=== PATIENT | male | born 1960 | race Caucasian/White ===

== ENCOUNTER 2017-03-19 11:12 | Emergency (ER) | payer OTHER ==
--- NOTE | 2017-03-19 12:25 | ED ORDER SUMMARY ---
..... Patient: BLAIR LAY OrderSheet [facility] VisitID: [id number] [place] [address] 57y, M Registration Date/Time: 03/19/2017 ORDER SHEET Weight: 99.7 kg (stated) Allergies: Tegretol GENERAL ORDERS: Foot 3V Right Urgent (12:06 03/19/2017 Darlin R.NDelma per protocol) (Ack 12:10 PWeiler ER Tech1) (12:21 PWeiler ER Tech1) Post-op Shoe (13:25 03/19/2017 Cr POLK) (13:44 PWeiler ER Tech1) MEDICATION ORDERS: IV FLUIDS: ORDER SHEET NOTES: [Electronically signed by Tracee Denton R.N. (13:58 03/19/2017)] [Electronically signed by Lizz Pizano MD (22:50 03/19/2017)] [Electronically locked/signed by Tracee Denton R.N. (13:58 03/19/2017)]
--- NOTE | 2017-03-19 12:25 | ED NURSING NOTES ---
Clinical Report - Nurses [facility] [address] [place] [address] 03/19/2017 11:12 Patient: BLAIR LAY TRIAGE Triage time 11:32. SEPSIS SCREEN: Sepsis Screen. Negative (no infection suspected/documented). --11:38 Quin Root R.N. 11:31 03/19/17. BP: 133/75. HR: 88. RR: 16. O2 saturation: 98%. Temp: 98.5 F. Pain level now: 05/20. --11:38 Quin Root R.N. Chief Complaint: Location of symptoms- (Right Foot pain). --13:58 Tracee Denton R.N. Weight: 99.7 kg stated. Height/Length: 71 inches Per Patient. BMI: 30.7. --11:37 Quin Root R.N. Medications Acyclovir Oral. ALPRAZolam Oral. Augmentin. BuPROPion HCl Oral. --11:35 Quin Roto R.N. Depakote Oral (Tablet Delayed Release 500 mg). Glucosamine-Chondroitin Oral. Hydrochlorothiazide Oral. LamoTRIgine Oral. Multivitamins Oral. Protonix Oral. RisperDAL Oral. --11:35 Quin Root R.N. Naprosyn Oral. --11:36 Quin Root R.N. Triumeq Oral. --11:36 Quin Root R.N. Allergies Tegretol. --11:35 Quin Root R.N. History Historian: patient. [place] ( R FOOT PAIN). An injury may have occurred. This occurred last night. Provoking / relieving factors: worsened by movement, standing and walking; relieved by remaining still. (HELPS TO HAVE SHOE ON). ( Pt was walking down stairs with laundry basket and missed the last step. Foot slammed down on the floor and when he lifted it up he could tell something was wrong. Tried to tough it out but the pain was too bad this morning.). PAST MEDICAL HX: No history of diabetes mellitus. SOCIAL HX: Never smoker. No alcohol use or drug use. SELF HARM ASSESSMENT: A self harm assessment was performed. The patient answered "no" to the question "Do you have thoughts of harming or killing yourself?". ABUSE ASSESSMENT: Abuse assessment: ("yes") The patient was asked "Do you feel safe in your home?". --11:38 Quin Root R.N. PROBLEMS: Thrombophlebitis. Acute renal failure syndrome. Anxiety Reaction. Depression. Skin Cancer. Heart problem. HIV Illness. Bipolar Disorder. Reflux. Gastroenteritis. --11:37 Quin Root R.N. ADDITIONAL SURGERIES: Appendectomy. Tonsillectomy. --11:37 Quin Root R.N. Interventions Allergy band on patient. --11:38 Quin Root R.N. PHYSICAL ASSESSMENT Ambulatory to room. GENERAL / NEURO / PSYCH: Oriented X 4. Alert. Appears in no acute distress. EXTREMITIES: Extremity pulses are within normal limits. Extremities exhibit normal ROM. Right dorsal foot: tenderness. Limited movement secondary to pain. ( pt limping). SKIN: Skin intact. Skin is warm and dry. --11:40 Quin Root R.N. NURSING PROGRESS NOTES Patient identifiers checked. Call light placed in reach. Bed placed in lowest position. Brakes of bed on. Patient ready for evaluation- ED physician notified. --11:40 Quin Root R.N. post-op shoe applied by EDT. --13:56 Tracee Denton R.N. 13:50. The patient is calm and resting quietly. Overall patient status is the same- he states feels the same. GENERAL / NEURO / PSYCH: Alert. Oriented X 4. RESPIRATORY: No respiratory distress. SKIN: Skin is warm and dry. --13:57 Tracee Denton R.N. DISPOSITION / DISCHARGE Departure time: 1350. Condition at departure: stable. Fall risk assessment completed. Risk factors identified include severe pain and patient impairment of mobility. No learning barriers present. Discharge instructions provided and reviewed with the patient. Reviewed medication(s). Prescription(s) given to the patient. Patient verbalized understanding. Written instructions provided in Macedonian. The patient was discharged home and unaccompanied at time of discharge. He left the Emergency Department ambulatory and via private vehicle. --13:56 Tracee Denton R.N. 13:50 03/19/17. BP: 117/84. HR: 87. RR: 18. O2 saturation: 95% on room air. Pain level now: 12/18. --13:56 Tracee Denton R.N. Locked/Released at 03/19/2017 13:58 by Tracee Denton R.N.
--- NOTE | 2017-03-19 12:25 | ED CLINICAL REPORT ---
Clinical Report - Physicians/Mid Levels [facility] [address] [place] [address] 03/19/2017 11:12 Patient: BLAIR LAY Time Seen: 12:07. Arrived- By private vehicle. Historian- patient. HISTORY OF PRESENT ILLNESS Chief Complaint: Injury to the right foot. The injury happened yesterday. The patient sustained a direct blow (patient states he stepped down hard on his foot when coming down the stairs and has had a sharp pain since, in the ball of his foot). Occurred at home. Patient is experiencing moderate pain. No other injury. REVIEW OF SYSTEMS The patient complains of pain on weight bearing. He has had swelling. No tingling, weakness, numbness, suspected foreign body or skin laceration. All systems otherwise negative, except as recorded above. PAST HISTORY Problems: Thrombophlebitis. Acute renal failure syndrome. Anxiety Reaction. Depression. Skin Cancer. Heart problem. HIV Illness. Bipolar Disorder. Reflux. Additional Surgeries: Appendectomy. Tonsillectomy. Medications: Triumeq Oral. Naprosyn Oral. Depakote Oral (Tablet Delayed Release 500 mg). Glucosamine-Chondroitin Oral. Hydrochlorothiazide Oral. LamoTRIgine Oral. Multivitamins Oral. Protonix Oral. RisperDAL Oral. Acyclovir Oral. ALPRAZolam Oral. Augmentin. BuPROPion HCl Oral. Allergies: Tegretol. SOCIAL HISTORY Never smoker. No alcohol use or drug use. ADDITIONAL NOTES The nursing notes have been reviewed. PHYSICAL EXAM Vital Signs: 03/19/2017 11:31 BP: 133/75. HR: 88. RR: 16. O2 saturation: 98%. Temp: 98.5 F. Pain level now: 05/20. Have been reviewed. Appearance: Alert. Oriented X3. No acute distress. Head: Head atraumatic. Eyes: Eyes normal inspection. ENT: Nose normal. Neck: No decreased ROM in the neck. CVS: Pulses normal. Respiratory: No respiratory distress. Back: ROM normal. Skin: Skin intact. Skin warm and dry. Extremities: Right foot, plantar aspect: moderate tenderness and mild swelling of the distal aspect of the foot. Neurovascular intact distally. (swelling is on the dorsum). No erythema, laceration, abrasion, ecchymosis or puncture wound. No foreign body or deformity. No ankle injury. Foot and ankle exam otherwise negative. Neuro, Vascular and Tendons: Vascular status intact. Sensation intact. Motor intact. Tendon function intact. Gait: Gait not tested due to pain. Neuro: No motor deficit. No sensory deficit. (Grossly oriented.). LABS, X-RAYS, AND EKG Rt Foot X-ray: No fracture. Normal alignment. No bony lesion, air in the soft tissue or foreign body. Soft tissues normal. Joint spaces normal. Views: 3 view foot series. Technique: good. The X-rays were independently viewed by me, interpreted by the radiologist and contemporaneously by me and discussed with the radiologist. Prior films were not available for comparison. Pulse Oximetry: 03/19/2017 11:31 O2 saturation: 98%. (FIO2 - room air). Interpretation: normal. PROGRESS AND PROCEDURES Course of Care: Patient was worked up with an x-ray of his right foot, which was negative. I did explain to him that I felt he likely has a soft tissue injury, which will heal on its own. Patient was given a post-op shoe to assist with comfort with walking until his foot has recovered. Patient counseled in person regarding the patient's stable condition, test results, diagnosis and need for follow-up. Concerns were addressed. Old medical records reviewed. Disposition: Discharged. Condition: stable. CLINICAL IMPRESSION Sprain of the tarsometatarsal ligaments of the right foot. INSTRUCTIONS Warnings: GENERAL WARNINGS: Return or contact your physician immediately if your condition worsens or changes unexpectedly, if not improving as expected, or if other problems arise. Your Current Medications: CONTINUE TAKING THE FOLLOWING MEDICATIONS: Acyclovir Oral. ALPRAZolam Oral. Augmentin*. BuPROPion HCl Oral. Depakote Oral : Tablet Delayed Release 500 mg. Glucosamine-Chondroitin Oral. Hydrochlorothiazide Oral. LamoTRIgine Oral. Multivitamins Oral. Naprosyn Oral. Protonix Oral. RisperDAL Oral. Triumeq Oral. Prescription Medications: Hydrocodone/APAP 5mg / 325mg: take 1 orally every 8 hours as needed for pain. Dispense ten (10). No refill. Follow-up: Follow up with your doctor as needed. Understanding of the discharge instructions verbalized by patient. (Electronically signed by Lizz Pizano MD 03/19/2017 22:50)
--- NOTE | 2017-03-19 12:25 | ED ORDER SUMMARY ---
..... Patient: BLAIR LAY OrderSheet [facility] VisitID: [id number] [place] [address] 57y, M Registration Date/Time: 03/19/2017 ORDER SHEET Weight: 99.7 kg (stated) Allergies: Tegretol GENERAL ORDERS: Foot 3V Right Urgent (12:06 03/19/2017 Darlin R.NDelma per protocol) (Ack 12:10 PWeiler ER Tech1) (12:21 PWeiler ER Tech1) Post-op Shoe (13:25 03/19/2017 Cr POLK) (13:44 PWeiler ER Tech1) MEDICATION ORDERS: IV FLUIDS: ORDER SHEET NOTES: [Electronically signed by Tracee Denton R.N. (13:58 03/19/2017)] [Electronically signed by Lizz Pizano MD (22:50 03/19/2017)] [Electronically locked/signed by Tracee Denton R.N. (13:58 03/19/2017)]
--- NOTE | 2017-03-19 13:13 | DIAGNOSTIC IMAGING REPORT ---
PROCEDURE: XR FOOT 3 VIEWS - RIGHT INDICATION: TRAUMA/INJURY TECHNIQUE: Three views. COMPARISON: None. FINDINGS: Osseous structures and joint spaces are normal. IMPRESSION: 1. Normal right foot.
--- NOTE | 2017-03-19 22:50 | ED MAR SUMMARY ---
..... Medication Administration Record [facility] [address] [place], [place] [id number] Patient: BLAIR LAY Visit ID: [id number] 57y, M Weight: 99.7 kg Height/Length: 71 in BMI: 30.7 ALLERGIES: Tegretol
--- NOTE | 2017-03-19 22:50 | ED DISCHARGE INSTRUCTIONS ---
Patient: BLAIR LAY General Instructions [facility] VisitID: [id number] [place] [address] 57y, M Registration Date/Time: 03/19/2017 Sprain of the tarsometatarsal ligaments of the right foot. INSTRUCTIONS Warnings: GENERAL WARNINGS: Return or contact your physician immediately if your condition worsens or changes unexpectedly, if not improving as expected, or if other problems arise. Your Current Medications: CONTINUE TAKING THE FOLLOWING MEDICATIONS: Acyclovir Oral. ALPRAZolam Oral. Augmentin*. BuPROPion HCl Oral. Depakote Oral : Tablet Delayed Release 500 mg. Glucosamine-Chondroitin Oral. Hydrochlorothiazide Oral. LamoTRIgine Oral. Multivitamins Oral. Naprosyn Oral. Protonix Oral. RisperDAL Oral. Triumeq Oral. Prescription Medications: Hydrocodone/APAP 5mg / 325mg: take 1 orally every 8 hours as needed for pain. Dispense ten (10). No refill. Follow-up: Follow up with your doctor as needed. Understanding of the discharge instructions verbalized by patient. (Electronically signed by Lizz Pizano MD 03/19/2017 22:50)
--- NOTE | 2017-03-19 22:50 | ED MAR SUMMARY ---
..... Medication Administration Record [facility] [address] [place] [place], [place] [id number] Patient: BLAIR LAY Visit ID: [id number] 57y, M Weight: 99.7 kg Height/Length: 71 in BMI: 30.7 ALLERGIES: Tegretol
--- NOTE | 2017-03-19 22:50 | ED MED RECONCILIATION SUMMARY ---
Patient: BLAIR LAY Medication Reconciliation Report [facility] VisitID: [id number] [address] [place] [address] 57y, M Registration Date/Time: 03/19/2017 Weight: 99.7 kg Height/Length: 71 in. BMI: 30.7 ALLERGIES: Tegretol The patient's Home Medications are listed below: CONTINUE TAKING THE FOLLOWING MEDICATIONS: Acyclovir Oral ALPRAZolam Oral Augmentin BuPROPion HCl Oral Depakote Oral (500 mg) Glucosamine-Chondroitin Oral Hydrochlorothiazide Oral LamoTRIgine Oral Multivitamins Oral Naprosyn Oral Protonix Oral RisperDAL Oral Triumeq Oral The source(s) of the original Home Medication information: Not obtained. The following Medications were given to the patient in the Emergency Department: None. The following Medications were prescribed to the patient: Hydrocodone/APAP 5mg / 325mg: take 1 orally every 8 hours as needed for pain. Dispense ten (10). No refill. -- Lizz Pizano MD
--- NOTE | 2017-03-19 22:50 | ED DISCHARGE INSTRUCTIONS ---
Patient: BLAIR LAY General Instructions [facility] VisitID: [id number] [place] [address] 57y, M Registration Date/Time: 03/19/2017 Sprain of the tarsometatarsal ligaments of the right foot. INSTRUCTIONS Warnings: GENERAL WARNINGS: Return or contact your physician immediately if your condition worsens or changes unexpectedly, if not improving as expected, or if other problems arise. Your Current Medications: CONTINUE TAKING THE FOLLOWING MEDICATIONS: Acyclovir Oral. ALPRAZolam Oral. Augmentin*. BuPROPion HCl Oral. Depakote Oral : Tablet Delayed Release 500 mg. Glucosamine-Chondroitin Oral. Hydrochlorothiazide Oral. LamoTRIgine Oral. Multivitamins Oral. Naprosyn Oral. Protonix Oral. RisperDAL Oral. Triumeq Oral. Prescription Medications: Hydrocodone/APAP 5mg / 325mg: take 1 orally every 8 hours as needed for pain. Dispense ten (10). No refill. Follow-up: Follow up with your doctor as needed. Understanding of the discharge instructions verbalized by patient. (Electronically signed by Lizz Pizano MD 03/19/2017 22:50)
--- NOTE | 2017-03-19 22:50 | ED MED RECONCILIATION SUMMARY ---
Patient: BLAIR LAY Medication Reconciliation Report [facility] VisitID: [id number] [address] [address] 57y, M Registration Date/Time: 03/19/2017 Weight: 99.7 kg Height/Length: 71 in. BMI: 30.7 ALLERGIES: Tegretol The patient's Home Medications are listed below: CONTINUE TAKING THE FOLLOWING MEDICATIONS: Acyclovir Oral ALPRAZolam Oral Augmentin BuPROPion HCl Oral Depakote Oral (500 mg) Glucosamine-Chondroitin Oral Hydrochlorothiazide Oral LamoTRIgine Oral Multivitamins Oral Naprosyn Oral Protonix Oral RisperDAL Oral Triumeq Oral The source(s) of the original Home Medication information: Not obtained. The following Medications were given to the patient in the Emergency Department: None. The following Medications were prescribed to the patient: Hydrocodone/APAP 5mg / 325mg: take 1 orally every 8 hours as needed for pain. Dispense ten (10). No refill. -- Lizz Pizano MD
== END 2017-03-19 13:50 | disposition home or self-care (01) ==
LOC: ED SRH 11:12
DX: S93.621A Sprain of tarsometatarsal ligament of right foot, initial encounter (principal); X50.0XXA Overexertion from strenuous movement or load, initial encounter; Y93.01 Activity, walking, marching and hiking; Y99.9 Unspecified external cause status; Y92.009 Unspecified place in unspecified non-institutional (private) residence as the place of occurrence of the external cause; B20 Human immunodeficiency virus [HIV] disease; N17.9 Acute kidney failure, unspecified